=== PATIENT | female | born 1940 | race Caucasian/White ===

== ENCOUNTER 2016-10-28 09:51 | Emergency (ER) | payer OTHER ==
[~2016-10-28] VITALS: Ht 152.4 cm; Wt 85.0 kg
[~2016-10-28 09:51] MED LIST: ARTHRITIS PAIN650 M1 PO; ASPIR 8181 M1 PO; ASPIR-LOW81 MG PO; ASPIRIN81 M1 PO; AVENTYL,PAMELOR25 MG PO; AVENTYL,PAMELOR50 MG PO; BENTYL20 MG PO; CARDIZEM CD,CA120 MG PO; CARDIZEM CD120 MG PO; CENTRUM SILVER1 EAC3 PO; CINNAMON500 MG PO; COLACE100 MG PO; DAILY VALUE1 EACH PO; DILAUDID2 MG PO; DILTZAC ER120 MG PO; GABAPENTIN300 MG PO; HYDROCODON-ACE1 EAC7 PO; HYDROMORPHONE; KEFLEX500 MG PO; L-LYSINE500 M1 PO; L-LYSINE500 MG PO; LEVEMIR FL100 UNIT/1 SC; LISINOPRIL-HCT1 EAC3 PO; LO-DOSE ASPIRIN81 M1 PO; LORTAB 5-325 M1 EACH PO; LOVASTATIN20 MG PO; LYSINE500 MG PO; METAMUCIL0.52 GM PO; METAMUCIL1 EACH PO; MIRALAX17 GM PO; MOTRIN600 MG PO; MULTIVITAMIN1 EAC1 PO; NEURONTIN300 MG PO; NORTRIPTYLINE H50 MG PO; OS-CAL 500+D C1 EAC1 PO; OS-CAL 500+D T1 EAC1 PO; OSCAL, OYSTER500 MG PO; OYSTERCAL-D 501 EACH PO; PRANDIN1 MG PO; PREVACID 24HR15 MG PO; PREVACID15 MG PO; REMERON15 M2 PO; REPAGLINIDE1 MG PO; THERAGRAN1 TABLET PO; TORADOL10 MG PO; TRAZODONE HCL50 MG PO; VITAMIN C1000 M3 PO; VITAMIN C1000 MG PO; ZESTORETIC 20-1 EAC2 PO; ZESTORETIC 20-1 EACH PO; ZINC SULFATE220 MG PO; Zestoretic,Prinzide PO; [UNRECOGNIZED DRUG - OTHER] PO
[2016-10-28 10:28] LABS: HEMATOCRIT 43.1 % (36.0-46.0); MCH 33.6 PG (29.0-34.0); MCHC 33.9 G/DL (30.0-36.0); MCV 99.1 FL (83-99); MEAN PLAT.VOLUME 9.6 uM^3 (9.5-12.4); PLATELET COUNT 179 K/uL (156-360); RBC DIS.WIDTH-CV 12.9 % (11.8-14.6); RBC DIS.WIDTH-SD 46.9 % (39-53); RED BLOOD COUNT 4.35 M/uL (3.80-5.20); WHITE BLOOD COUNT 7.2 K/uL (4.1-10.2)
[2016-10-28 10:35] LABS: CHLORIDE 106 mEq/L (99-109); POTASSIUM 4.1 mEq/L (3.7-5.4); SODIUM 142 mEq/L (136-147)
[2016-10-28 10:37] LABS: GLUCOSE 196 mg/dL (70-99)
[2016-10-28 10:39] LABS: ANION GAP 10 MEQ/L (2-14)
[2016-10-28 10:41] LABS: GFR ESTIMATE (CALCULATED) > 59 mL/min/
[2016-10-28 10:42] LABS: UREA NITROGEN (BUN) 19 mg/dL (9-23)
[2016-10-28] MEDS ORDERED: KEFLEX500 MG PO (11:38)
[2016-10-28 12:07] VITALS: BP 150/84
== END 2016-10-28 12:08 | disposition home or self-care (01) ==
LOC: EME 09:51
PROVIDERS: Emergency Medicine
PROC: 2Y41X5Z Packing of Nasal Region using Packing Material (ICD-10-PCS; principal; 2016-10-28)
DX: R04.0 Epistaxis (principal); Z79.82 Long term (current) use of aspirin; I10 Essential (primary) hypertension; E11.9 Type 2 diabetes mellitus without complications; Z79.84 Long term (current) use of oral hypoglycemic drugs; Z85.3 Personal history of malignant neoplasm of breast; Z87.891 Personal history of nicotine dependence
CPT/HCPCS: 80048; 85027; 99281; 99284

== ENCOUNTER 2016-10-28 12:56 | Emergency (ER) | payer OTHER ==
[~2016-10-28] VITALS: Ht 162.6 cm; Wt 69.4 kg
[2016-10-28 15:47] VITALS: BP 128/70
== END 2016-10-28 15:52 | disposition home or self-care (01) ==
LOC: EME 12:56
PROC: 2Y41X5Z Packing of Nasal Region using Packing Material (ICD-10-PCS; principal; 2016-10-28)
DX: R04.0 Epistaxis (principal); I10 Essential (primary) hypertension; Z79.82 Long term (current) use of aspirin; Z86.73 Personal history of transient ischemic attack (TIA), and cerebral infarction without residual deficits; E78.5 Hyperlipidemia, unspecified; E11.9 Type 2 diabetes mellitus without complications; F32.9 Major depressive disorder, single episode, unspecified; Z85.3 Personal history of malignant neoplasm of breast; Z96.651 Presence of right artificial knee joint; Z88.0 Allergy status to penicillin; Z88.6 Allergy status to analgesic agent; Z88.1 Allergy status to other antibiotic agents; Z87.891 Personal history of nicotine dependence; I48.91 Unspecified atrial fibrillation; Z79.84 Long term (current) use of oral hypoglycemic drugs
CPT/HCPCS: 99281; 99284; J0171; J2060

== ENCOUNTER 2016-10-29 09:31 | Emergency (ER) | payer OTHER ==
[~2016-10-29] VITALS: Ht 152.4 cm; Wt 83.8 kg
[2016-10-29 12:08] VITALS: BP 131/80
== END 2016-10-29 12:12 | disposition home or self-care (01) ==
LOC: EME 09:31
DX: R04.0 Epistaxis (principal); I10 Essential (primary) hypertension; E11.9 Type 2 diabetes mellitus without complications; Z79.84 Long term (current) use of oral hypoglycemic drugs; Z79.82 Long term (current) use of aspirin; Z87.891 Personal history of nicotine dependence
CPT/HCPCS: 99281; 99285

== ENCOUNTER 2016-10-30 00:56 | Emergency (ER) | payer OTHER ==
[~2016-10-30] VITALS: Ht 152.4 cm; Wt 83.8 kg
[2016-10-30 03:32] LABS: HEMATOCRIT 36.3 % (36.0-46.0); MCH 33.7 PG (29.0-34.0); MCHC 33.6 G/DL (30.0-36.0); MCV 100.3 FL (83-99); MEAN PLAT.VOLUME 9.8 uM^3 (9.5-12.4); PLATELET COUNT 178 K/uL (156-360); RBC DIS.WIDTH-CV 12.8 % (11.8-14.6); RBC DIS.WIDTH-SD 47.6 % (39-53); RED BLOOD COUNT 3.62 M/uL (3.80-5.20); WHITE BLOOD COUNT 8.3 K/uL (4.1-10.2)
[2016-10-30 05:24] VITALS: BP 114/72
== END 2016-10-30 05:26 | disposition short-term general hospital (02) ==
LOC: EME 00:56
PROVIDERS: Physician Assistant
DX: R04.0 Epistaxis (principal); I10 Essential (primary) hypertension; E78.5 Hyperlipidemia, unspecified; E11.9 Type 2 diabetes mellitus without complications; Z85.3 Personal history of malignant neoplasm of breast; Z86.73 Personal history of transient ischemic attack (TIA), and cerebral infarction without residual deficits; F32.9 Major depressive disorder, single episode, unspecified; Z88.6 Allergy status to analgesic agent; Z88.1 Allergy status to other antibiotic agents; Z87.891 Personal history of nicotine dependence; Z79.84 Long term (current) use of oral hypoglycemic drugs
CPT/HCPCS: 85027; 99281; 99285; J2405; J3010; J7040

== ENCOUNTER 2017-05-25 00:14 | Emergency (ER) | payer OTHER ==
[~2017-05-25] VITALS: Ht 152.4 cm; Wt 87.5 kg
[2017-05-25] MEDS ORDERED: KEFLEX500 MG PO (03:41)
[2017-05-25 04:09] VITALS: BP 153/82
== END 2017-05-25 04:09 | disposition home or self-care (01) ==
LOC: EME 00:14
DX: S80.861A Insect bite (nonvenomous), right lower leg, initial encounter (principal); S80.851A Superficial foreign body, right lower leg, initial encounter; W57.XXXA Bitten or stung by nonvenomous insect and other nonvenomous arthropods, initial encounter; Z88.0 Allergy status to penicillin; Z88.5 Allergy status to narcotic agent; Z88.6 Allergy status to analgesic agent; Z88.8 Allergy status to other drugs, medicaments and biological substances
CPT/HCPCS: 99281; 99285

== ENCOUNTER 2017-11-09 16:43 | Emergency (ER) | payer OTHER ==
[~2017-11-09] VITALS: Ht 167.6 cm; Wt 79.6 kg
[2017-11-09 17:29] LABS: BASOPHIL (%) 0.4 % (0-1); EOSINOPHIL (%) 1.8 % (0-5); EOSINOPHIL COUNT 0.1 K/uL (0-0.3); HEMATOCRIT 41.1 % (36.0-46.0); HEMOGLOBIN 14.3 G/DL (11.9-15.5); IMMATURE GRANULOCYTE (%) 0.1 % (0.0-0.7); LYMPHOCYTE COUNT 2.4 K/uL (1.0-2.8); MCH 34.3 PG (29.0-34.0); MCHC 34.8 G/DL (30.0-36.0); MCV 98.6 FL (83-99); MONOCYTE (%) 10.3 % (3-12); MONOCYTE COUNT 0.7 K/uL (0-0.8); NEUTROPHIL (%) 51.4 % (45-76); NEUTROPHIL COUNT 3.5 K/uL (1.8-6.4); PLATELET COUNT 185 K/uL (156-360); RBC DIS.WIDTH-CV 12.2 % (11.8-14.6); RBC DIS.WIDTH-SD 44.1 % (39-53); RED BLOOD COUNT 4.17 M/uL (3.80-5.20); WHITE BLOOD COUNT 6.8 K/uL (4.1-10.2)
[2017-11-09 17:43] LABS: CHLORIDE 105 mEq/L (99-109); POTASSIUM 4.1 mEq/L (3.7-5.4); SODIUM 140 mEq/L (136-147)
[2017-11-09 17:44] LABS: MAGNESIUM 2.2 mg/dL (1.3-2.7)
[2017-11-09 17:46] LABS: GLUCOSE 121 mg/dL (70-99)
[2017-11-09 17:48] LABS: TOTAL BILIRUBIN 0.4 mg/dL (0.0-1.0)
[2017-11-09 17:49] LABS: ALKALINE PHOSPHATASE 78 IU/L (3-129); CREATININE 0.7 mg/dL (0.6-1.3); GFR ESTIMATE (CALCULATED) > 59 mL/min/
[2017-11-09 17:50] LABS: UREA NITROGEN (BUN) 16 mg/dL (9-23)
[2017-11-09 17:51] LABS: AST (GOT) 18 IU/L (2-34)
[2017-11-09 17:52] LABS: ALT (GPT) 22 IU/L (3-49)
[2017-11-09 17:56] LABS: TROP-I INTERPRETATION NEGATIVE; TROPONIN-I < 0.01 ng/mL (0.0-0.30)
[2017-11-09 20:53] LABS: TROP-I INTERPRETATION NEGATIVE; TROPONIN-I 0.01 ng/mL (0.0-0.30)
[2017-11-09] MEDS ORDERED: ZOFRAN ODT4 MG PO (21:04)
[2017-11-09 22:05] VITALS: BP 151/66
== END 2017-11-09 22:06 | disposition home or self-care (01) ==
LOC: EME 16:43
PROVIDERS: Emergency Medicine
DX: R07.9 Chest pain, unspecified (principal); K44.9 Diaphragmatic hernia without obstruction or gangrene; R91.8 Other nonspecific abnormal finding of lung field; M79.601 Pain in right arm; R11.0 Nausea; R51 Headache; M54.9 Dorsalgia, unspecified; I44.7 Left bundle-branch block, unspecified; I10 Essential (primary) hypertension; E11.9 Type 2 diabetes mellitus without complications; Z79.84 Long term (current) use of oral hypoglycemic drugs; Z79.82 Long term (current) use of aspirin; Z86.73 Personal history of transient ischemic attack (TIA), and cerebral infarction without residual deficits; Z90.49 Acquired absence of other specified parts of digestive tract; Z85.3 Personal history of malignant neoplasm of breast
CPT/HCPCS: 71045; 71275; 80053; 83735; 84484; 85025; 93005; 99281; 99285; J2405